=== PATIENT | male | born 1940 | race Caucasian/White ===

== ENCOUNTER 2017-02-06 11:23 | Inpatient (IN) | payer MEDICARE ==
[~2017-02-06] VITALS: Ht 137.2 cm; Wt 86.5 kg
--- NOTE | ~2017-02-06 | ECH ---
Transthoracic Echocardiography Report (TTE) Demographics Patient Name GISELA MORA Date of Study 02/07/2017 Patient Number [id number] Visit Number [id number] Date of 1940 Room Number 428 Accession Number [id number] Gender Male Age 76 year(s) Referring Monica Baraohna [employer] Pamela August [facility] Physician MD Jak Nelson MD Physician Interpreting Monica Barahona Pathology Laboratory Technologist Physician MD Supervising Ordering Physician Monica Barahona MD/ASHA VALERA Nurse Stress Snuff Box Finisher Conclusions Summary Technically difficult exam. The estimated left ventricular ejection fraction is 30%. Mild concentric left ventricular hypertrophy. The left atrium is severely dilated by LA volume index measurement. Mild mitral regurgitation by color Doppler. There is mild aortic regurgitation by color Doppler. The aortic root appears moderately dilated. The maximum diameter measures 4.3 cm at the sinus of valsalva. Procedure Type of Study TTE procedure:Echo Complete SF. Procedure Date Date: 02/07/2017 Start: 10:50 AM Technical Quality: Fair due to patient immobility. Indications:Elevated Troponin, Congestive heart failure, Ischemic Cardiomyopathy and Coronary artery disease. Additional Indications:elevated BNP Appropriate Use Criteria: 9 Height: 54 inches Weight: 193 pounds BSA: 1.7 m Rhythm: Within normal limits HR: 84 bpm BP: 153/85 mmHg M-Mode/2D Measurements LV Diastolic Dimension: 5.1 cm LV Systolic Dimension: 5.15 cm LV Septum Diastolic: 1.29 cm LV PW Diastolic: 1.25 cm AO Root Dimension: 3.02 cm LA Dimension: 4.07 cm RV Diastolic Dimension: 3.44 cm LA volume: 91.93 ml LA volume index: 54 ml/m LVOT: 2.51 cm Doppler Measurements AV Mean Gradient: 0.46 mmHg MV Peak E-Wave: 0.66 m/s RA Area: 16.28 cm Findings Left Ventricle The left ventricle is normal in size . Mild concentric left ventricular hypertrophy. Diastolic function indeterminate due to patient's arrhythmia. Right Ventricle Normal right ventricle structure and function. Left Atrium The left atrium is severely dilated by LA volume index measurement. Right Atrium Normal right atrial size. Mitral Valve Normal mitral valve structure and function. Mild mitral regurgitation by color Doppler. Aortic Valve Normal aortic valve structure and function. There is mild aortic regurgitation by color Doppler. Tricuspid Valve Normal tricuspid valve structure and function. Pulmonic Valve The pulmonic valve is not well visualized. Pericardial Effusion No evidence of pericardial effusion. Miscellaneous The aortic root appears moderately dilated. The maximum diameter measures 4.3 cm at the sinus of valsalva. Pleural Effusion No evidence of pleural effusion. Contractility Score LV regional wall motion:(0-Non visualized 1-Normal 2-Hypokinesis 3-Akinesis 4-Dyskinesis 5-Aneurysm) Signature
--- NOTE | ~2017-02-06 | WND ---
ADMIT: 02/06/2017 RM/LOC: 403 [facility] MR#: [id number] 2620 [facility] [address] [place] [id number] GISELA MORA [address] [place] [id number] [facility] SEX: M AGE: 76 : 1940 DATE OF VISIT: 02/12/2017 TIME IN: 1110 hours. TIME OUT: 1115 hours. REASON FOR VISIT: Re-evaluation of skin concerns. This is a request for Dr. Doherty. HISTORY OF PRESENT ILLNESS: This is a 76-year-old male with chronic systolic heart failure, peripheral vascular disease, type 2 diabetes. Prior to admission, he quit taking his Lasix. He became short of breath, and so he was evaluated in the emergency room and diagnosed with acute on chronic systolic heart failure and referred for admission. He had a previous bilateral above- the-knee amputation secondary to peripheral vascular disease. He was examined and admitted for hypoxic respiratory failure. Acute on chronic systolic heart failure. Chronic stage 4 kidney disease. Elevated troponin. Type 2 diabetes mellitus. Coronary artery disease. Depression. History of COPD. Wound Care was consulted about skin concerns. He was evaluated by Betzy Madison APRN, NP, on 02/06/2017 and diagnosed with moisture-associated skin breakdown around his perirectal area. Orders were written for low air loss mattress, chair air cushion, and Aloe [place] Sensi-Care to be applied 4 times a day. Wound Care presents today for reevaluation of skin concerns. PAST MEDICAL HISTORY: As indicated in review of systems. Also includes gastroesophageal reflux disease. Depression. History of alcohol abuse. Glaucoma. Hyperlipidemia. Poorly controlled diabetes. JEAN CLAUDE. ALLERGIES: Penicillin, mercurial, morphine, and hydralazine. CURRENT MEDICATIONS: Per the MAR. Please see the MAR for further details. 1. Children's aspirin. 2. Coreg. 3. Flomax. 4. Lasix. 5. Lipitor. 6. Plavix. 7. Seroquel. 8. Zoloft. 9. DuoNeb. 10.Levemir. 11.NovoLog. 12.Nitroglycerin drip. PRN medications: 1. Maalox. 2. Surfak. 3. Tylenol. 4. Xanax. 5. Glucagon. ADMIT: 02/06/2017 RM/LOC: 403 [facility] MR#: [id number] [address] [address] GISELA MORA [address] [place] [address] Wound Care Clinic SEX: M AGE: 76 : 1940 6. Tylenol suppository. 7. Nitrostat. 8. D50. 9. Lopressor. FAMILY HISTORY: Obtained from previous record shows mother with peripheral vascular disease, hypertension, and diabetes. Father with heart disease and hypertension. SOCIAL HISTORY: He is . He is a former smoker. He has a history of alcohol abuse. He does not use drugs. He is retired and lives in [place] with his . REVIEW OF SYSTEMS: He is examined in his hospital room where he is awake, alert, and oriented x3. He denies any recent fever or chills. No nausea or vomiting. His appetite is good. He denies any cough, cold, or chest pain. He denies any abdominal discomfort. He does state that his bottom hurts up to a "9." PHYSICAL EXAMINATION: VITAL SIGNS: 96.1, 63, 16, blood pressure 133/62, O2 sats on nasal cannula is 90%. Focused exam, body wide skin exam was done. He has numerous bruising noted on his upper extremities related to his Coumadin use. On the right dorsal surface is a circular ulceration that measures 0.9 cm x 1.2 cm, has a dried dark red wound base. No drainage noted. To the dorsal surface of left hand, he has a C-shaped skin tear that measures 1.3 cm x 0.3 cm with a red moist wound base, a small amount of sanguinous drainage noted. To his sacral, coccyx, buttocks area in his gluteal crease, he has a slit that measures 1.6 x 0.3 cm with a red moist wound base. In his perirectal area is redness that measures 6 cm x 7 cm with the edges peeling. ADMIT: 02/06/2017 RM/LOC: 403 [facility] MR#: [id number] [address] [address] COLLINSGISELA FLORES [address] [place] [address] Wound Care Clinic SEX: M AGE: 76 : 1940 ASSESSMENT: 1. Category II skin tear, left hand. 2. Category III skin tear, right hand. 3. Moisture-associated skin breakdown, perirectal and gluteal crease. TREATMENT PLAN: Requested that the low air loss mattress overlay be placed on his bed. Chair air cushion when he is up. Position changes every 2 hours. Position off his bottom. Mepilex Border to the left hand skin tear to be changed twice a week and p.r.n. Thank you for this referral and Wound will follow while he is inpatient. Debbie Yuen APRN/ lucinda JOB #: [id number] CC: Santiago Benedict, Attending Physician Santiago Benedict, Family Physician
[~2017-02-06 11:23] MED LIST: AMBIEN5 MG PO; COZAAR25 MG PO; DAILY VITAMIN1 EACH PO; DUONEB DPS3 ML IH; HUMALOG, N100 UNITS/ SQ; LASIX40 M1 PO; NITROSTAT0.4 MG SL; PRAVACHOL20 M1 PO; TYLENOL DP650 MG/20. PO; VANTIN DPS200 MG PO; ZITHROMAX250 MG PO
--- NOTE | 2017-02-08 12:33 | ER ---
ADMIT: 02/06/2017 RM/LOC: 428 [facility] MR#: [id number] [id number] [facility] [address] [place], [place] [address] GISELA MORA [address] [place] [address] Emergency Room Report SEX: M AGE: 76 : 1940 DATE: 02/06/2017 ADDENDUM: This is a 76-year-old white male coming in with shortness of breath. He also had a little chest pain. He is a bilateral amputee, so when he takes his Lasix, he has to get up and pee, he has been having a hard time with that. Also notes that he had some chest pain at this time as well. We gave him 40 of Lasix here and he actually was doing pretty good. His CBC and chemistry are okay with the exception that his troponin did take a bump at 1.6 and BNP is always up 15,000+. Creatinine was 1.7. Chest x-ray shows big heart. EKG nothing acute otherwise. I spoke with Dr. Doherty, he is going to need to admit him. We also put an inch of paste on him bringing his pressure down to see if that will help his failure. CONDITION ON DISCHARGE: Serious but stable at this time. Bolivar Almanzar MD/ elenal JOB #: [id number] CC: Santiago Benedict MD, Attending Physician Santiago Benedict MD, Family Physician
--- NOTE | 2017-02-08 16:13 | HP ---
ADMIT: 02/06/2017 RM/LOC: 428 [facility] MR#: [id number] [facility] [address] [place], [place] [address] GISELA MORA [address] [place] [address] History and Physical SEX: M AGE: 76 : 1940 DATE OF SERVICE: CHIEF COMPLAINT: Dyspnea. HISTORY OF PRESENT ILLNESS: This is a 76-year-old male with chronic systolic heart failure, peripheral vascular disease, type 2 diabetes. He quit taking his Lasix several days ago as he has a bilateral bnjty-umy-ccdm amputation secondary to peripheral vascular disease and it is too hard to get around. Does have some breakdown on his bottom. Became acutely short of breath, so they brought him into the ER. Evaluated by Dr. Almanzar in the ER, is diagnosed with acute on chronic systolic heart failure and referred to admission. I evaluated him at his bedside in room #428. He is very personable, still feels a bit short of breath. No wesley chest pain or anything like that. He states exactly what happened, he stopped taking his medications approximately 3 days ago and he became acutely short of breath. He does this because he is a bilateral amputee and he cannot get around to go to the bathroom. He also has a breakdown on his buttock. PAST MEDICAL HISTORY: 1. Coronary artery disease, history of two-vessel CABG. 2. Poorly-controlled diabetes. 3. Hypertension. 4. JEAN CLAUDE. 5. GERD. 6. Chronic systolic heart failure. 7. Depression. 8. History of alcohol abuse. 9. Glaucoma. 10.Peripheral vascular disease. 11.Bilateral oeqem-hdv-xqqi amputations. 12.COPD. 13.Hyperlipidemia. MEDICATIONS: 1. Lantus. 2. Coreg. 3. Aspirin. 4. Plavix. 5. Famotidine. 6. Folic acid. 7. Nitroglycerin. 8. Pravastatin. 9. Seroquel. 10.Sertraline. 11.Thiamine. 12.Tylenol. 13.Valsartan. ADMIT: 02/06/2017 RM/LOC: 428 [facility] MR#: [id number] [address] [address] [place] GISELA Nelson [address] [place] [address] History and Physical SEX: M AGE: 76 : 1940 14.Zolpidem. ALLERGIES: PENICILLIN, MERCURIAL, MORPHINE, AND HYDRALAZINE. FAMILY HISTORY: Mother with peripheral vascular disease, hypertension, and diabetes. Father with heart disease and hypertension. SOCIAL HISTORY: He is . He is a former smoker. He has history of alcohol abuse. He does not do drugs. REVIEW OF SYSTEMS: Complete review of systems reviewed, per HPI. PHYSICAL EXAMINATION: VITAL SIGNS: Blood pressure is 178/105, pulse 90, respiratory rate is 20. He is on supplemental O2. Temp is 94.2. GENERAL: He is alert and oriented x3. No acute distress. HEENT: Normocephalic, atraumatic. Extraocular movements intact. Pupils equal and responsive to light. No nasal discharge. NECK: Supple. HEART: Regular. LUNGS: Diffuse wheezing, distant bilaterally. ABDOMEN: Soft, nontender. EXTREMITIES: He has bilateral lower extremity lfhyl-ijp-xflk amputations. IMAGING STUDIES: EKG with some concern for old infarct. No acute STs that I can see in a study here. ASSESSMENT AND PLAN: 1. Hypoxic respiratory failure. 2. Acute on chronic systolic heart failure. 3. Stage 4 chronic kidney disease. 4. Elevated troponin. 5. Type 2 diabetes mellitus. 6. Coronary artery disease. 7. Depression. 8. History of chronic obstructive pulmonary disease. ADMIT: 02/06/2017 RM/LOC: [address] [place] [address] MR#: [id number] [id number] [facility] [address] [place], [place] [address] GISELA MORA [address] [place] [address] History and Physical SEX: M AGE: 76 : 1940 Admit him to my service. He was given 80 mg of IV Lasix in the ER. I will place him on some bronchodilator therapy, maintain him on his home psychotropic regimen. I will maintain him n.p.o. status, half dose his basal insulin, place him on a q.4 hours regular dose supplemental scale. I gave him 325 of aspirin, maintain him on a statin and Plavix. Due to the elevated troponin, we will request a transthoracic echo and we will request the [facility] see the patient. The patient is a full code. Discussed the plan with the patient, he expressed understanding, was in agreement, and had no further questions. Bolivar Schuler MD/ lucinda JOB #: [id number] CC: Santiago Benedict, Attending Physician Santiago Benedict, Family Physician
--- NOTE | 2017-02-15 09:12 | DS ---
ADMIT: 02/06/2017 RM/LOC: 403 [facility] MR#: [id number] [id number] [facility] [address] [place], [place] [address] GISELA MORA [address] [place] [address] Discharge Summary SEX: M AGE: 76 : 1940 ADMISSION DATE: 02/06/2017 DISCHARGE DATE: 02/14/2017 DISCHARGE DIAGNOSES: 1. Acute coronary syndrome/non ST-segment elevation OK (myocardial infarction). 2. Coronary artery disease, status post prior coronary bypass grafting. 3. Ischemic cardiomyopathy. 4. Acute on chronic heart failure with reduced ejection fraction. 5. Acute kidney injury, resolved. 6. Chronic kidney disease. 7. Hypoxic respiratory failure. 8. Apnea with likely undiagnosed obstructive sleep apnea. 9. Diabetes mellitus, type 2, poorly controlled, insulin requiring. 10.Peripheral vascular, status post prior bilateral qpdqr-wqo-tgts amputation. 11.Hypertension. 12.Hyperlipidemia. 13.Anxiety. 14.BPH (benign prostate hypertrophy). 15.Hypotension due to hypovolemia, resolved. 16.History of alcohol abuse and alcohol withdrawal. 17.Hypomagnesemia, resolved. CONSULTATIONS: Cardiology. PROCEDURES: None. REASON FOR ADMISSION: This is a 76-year-old gentleman with multiple medical problems, poorly controlled diabetes, heart disease, and systolic heart failure, presented to [facility] Emergency Room on the day of admission with complaints of dyspnea. He was found to be hypoxic and volume overloaded with an elevated troponin and he was admitted for evaluation and treatment. For complete details, please see the history and physical and consult notes as dictated in [facility]. HOSPITAL COURSE: At the time of admission, the patient was placed in PCU status. He was monitored on telemetry and oximetry, and given supplemental oxygen. He was placed on sliding scale insulin. His troponins were trended out. Initially, this was thought to be just heart failure, but then really more than anything was thought to later become an actual ischemic event. He was given aspirin and Lopressor. He underwent an echocardiogram and as mentioned, the cardiac enzymes were trended out. Cardiology was consulted. He was started on a nitroglycerin drip and diuresed. He was also started on a heparin drip for his acute coronary syndrome and given aspirin as well. The patient was aggressively diuresed throughout his hospital stay and actually became a little hypotensive, transiently requiring dopamine and thought to be secondary to hypovolemic issue. Throughout his hospital stay, he was monitored on alcohol withdrawal protocol and given some Ativan due to his long- ADMIT: 02/06/2017 RM/LOC: 403 [facility] MR#: [id number] [address] [place] [id number] [facility] [address] [place] [address] Discharge Summary SEX: M AGE: 76 : 1940 term use of alcohol. His echo returned with an EF of 30% with mild LVH. The patient slowly improved. He was seen by PT and OT. His creatinine bumped during his hospital stay, but that continued to improve with decrease in his diuretics. He was also transiently hypomagnesemic and that was replaced. As mentioned, his blood pressures improved after getting him off of the high dose diuretics. He continued to improve. Initially when he was hypotensive, he was covered with empiric antibiotics and stress dose steroids, and those were tapered as well. After a long discussion with Social Work, he was evaluated by a care home facility. He was taken off his heparin, continued with aspirin, Plavix, and carvedilol as his blood pressures resume. Due to his recent kidney injury, we held his angiotensin receptor tiffanie. He did have a little bit of wide complex tachycardia that was thought to be likely an aberrant finding. He continued to improve. As mentioned, his creatinine had improved. His PT and OT as well as myself all recommended care home at least for rehab prior to returning home as he just was thought to be home safety risk. The patient agreed and was accepted at a local recent rehab facility on 02/14. The patient did require oxygen through his hospitalization likely due to mild pulmonary edema from his heart failure as well as undiagnosed sleep apnea, and he will be discharged on oxygen at 2-3 L just to keep his sats greater than 90. His discharge diet is a 2 g sodium cardiac ADA diet as tolerated. His activity will be per Physical Therapy and Occupational Therapy. His home medications are found on his home medication list and we will have followup with him in the next week to ten days at [facility]. His code status is DNR/DNI at the time of discharge. Santiago Benedict MD/ wyatt JOB #: [id number] CC: Santiago Benedict MD, Attending Physician Santiago Benedict MD, Family Physician
[2017-02-15] MEDS ORDERED: ECOTRIN-DPS325 MG PO (19:30)
[2017-02-15] MEDS ORDERED: COREG6.25 MG PO (19:30)
[2017-02-15] MEDS ORDERED: LASIX DPS20 MG PO (19:31)
[2017-02-15] MEDS ORDERED: FLOMAX DPS0.4 MG PO (19:31)
[2017-02-15] MEDS ORDERED: ZOLOFT50 MG PO (19:32)
[2017-02-15] MEDS ORDERED: PLAVIX75 MG PO (19:32)
[2017-02-15] MEDS ORDERED: LIPITOR40 MG PO (19:32)
[2017-02-15] MEDS ORDERED: LEVEMIR100 UNIT/1 SQ (19:33)
[2017-02-15] MEDS ORDERED: SEROQUEL50 MG PO (19:33)
[2017-02-15] MEDS ORDERED: TYLENOL DPS325 MG PO (19:34)
[2017-02-15] MEDS ORDERED: XANAX DPS0.25 MG PO (19:34)
[2017-02-15] MEDS ORDERED: SURFAK240 MG PO (19:34)
[2017-02-15] MEDS ORDERED: NITROSTAT0.4 MG SL (19:35)
[2017-02-15] MEDS ORDERED: PEPCID20 MG PO (19:36)
[2017-02-15] MEDS ORDERED: VITAMIN B-1100 MG PO (19:36)
[2017-02-15] MEDS ORDERED: FOLVITE-DPS1 MG PO (19:36)
--- NOTE | 2017-02-22 17:29 | CO ---
ADMIT: 02/06/2017 RM/LOC: 428 [facility] MR#: [id number] 2620 [facility] [address] [place] [phone] GISELA MORA [address] [place] [address] Consultation SEX: M AGE: 76 : 1940 DATE OF CONSULTATION: 02/06/2017 ATTENDING PHYSICIAN: Santiago Benedict CONSULTING PHYSICIAN: Shaggy Anderson MD REASON FOR CONSULT: Elevated troponin. Elizbaeth Zepeda RN, scribing for Dr. Shaggy Anderson. HISTORY OF PRESENT ILLNESS: Walter is a very pleasant, 76-year-old gentleman I have been asked to see in Cardiology consultation by Dr. Schuler for elevated troponin. I saw him in the hospital in 2015 for decreased ejection fraction and non-ST elevated VT. His EF at that time was 25-30%. He did not want any cardiac catheterization or further evaluation at that time. He discharged home on medical management. He no-showed to followups and I have not seen him since. 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 He also has history of coronary artery disease, status post bypass by Dr. Shields at [facility] over 10 years ago. I do not have those records. Last echo was in 2014. EF at that time was 25-30%. He has history of high blood pressure, hyperlipidemia, and he is a diabetic. Walter presented to [facility] today with complaints of a "cramping" sensation in his chest. He had radiation of this to his jaw and he was short of breath. He stated this began about 4-5 days ago and progressively has been getting worse. He continued to have worsening discomfort and so decided to come to the emergency room. He had lab work performed which did demonstrate elevated troponin of 1.6. EKG did not show any change from [address]-T changes. He had proBNP of 15,000. His creatinine was elevated at 1.7 with a BUN of 27. Currently, he is pain-free and denies any shortness of breath and is resting comfortably in bed. His blood pressure was extremely elevated on arrival, and when he got to the floor, his blood pressure was 183/150. He is currently getting IV Lopressor which has brought it down mildly to 179/103. Heart rate is in the 80s to 90s. PAST MEDICAL HISTORY: 1. Coronary artery disease. 2. Peripheral vascular disease, status post bilateral above-knee amputation. 3. Hypertension. 4. Hyperlipidemia. 5. Diabetes. 6. Ischemic cardiomyopathy. 7. Chronic kidney disease. 8. Depression. ALLERGIES: PENICILLIN, MORPHINE, HYDRALAZINE. MEDICATIONS: Continued home medications include: ADMIT: 02/06/2017 RM/LOC: 428 [facility] MR#: [id number] [address] [place] [phone] GISELA MORA [address] [place] [address] Consultation SEX: M AGE: 76 : 1940 1. Lantus 7 units at bedtime. 2. Carvedilol 6.25 p.o. b.i.d. 3. Aspirin 81 daily. 4. Plavix 75 p.o. daily. 5. Famotidine 20 p.o. twice daily. 6. Folic acid 1 mg p.o. daily. 7. Nitroglycerin sublingual p.r.n. 8. Pravastatin 20 p.o. at bedtime. 9. Quetiapine 50 mg p.o. daily. 10.Sertraline 50 mg p.o. daily. 11.Thiamin 100 mg p.o. daily. 12.Tylenol extra-strength 1000 mg every 4 hours p.r.n. p.o. 13.Valsartan 80 mg p.o. daily. 14.Zolpidem 10 mg at bedtime. 15.He did receive 40 mg IV Lasix in the ER. FAMILY HISTORY: Positive family history of heart disease. SOCIAL HISTORY: Will lives at home with his who helps him with his cares. He is retired. He denies any caffeine, question alcohol use. Denies tobacco use. REVIEW OF SYSTEMS: GENERAL: Denies fatigue, fever, chills, sweats, rash, or weight loss. EYES: Denies double vision, blurred vision, cataracts, or glaucoma. ENT: Denies hearing loss or problems with nose, mouth or throat. PULMONARY: Increased shortness of breath. Denies any hemoptysis or obstructive sleep apnea. GASTROINTESTINAL: He has history of acid reflux and heartburn. Denies any trouble swallowing, GI bleeding, gallbladder issues, or liver disease. GENITOURINARY: History of chronic kidney disease. Denies dysuria, hematuria, nocturia, urinary tract infection, or kidney stones. Denies history of renal insufficiency or failure. MUSCULOSKELETAL: He is a bilateral amputee. Denies any arthritis or gout. ENDOCRINE: Denies history of thyroid dysfunction or diabetes. HEMATOLOGIC: Denies history of anemia, easy bruising, or cancer. NEUROLOGIC: Denies chronic headaches, dizziness, syncope, stroke, seizures or numbness or tingling. PSYCHIATRIC: History of anxiety. Denies history of mental illness or feelings of depression. PHYSICAL EXAMINATION: VITAL SIGNS: Blood pressure 179/103, heart rate 89, respirations 18, temperature 97.5, oxygenation 98% on 2 L. GENERAL: Alert, mildly dyspneic. SKIN: [place], warm and dry. EYES: Sclerae clear. No xanthelasmas. ENT: Oral mucosa is pink and moist. No jugular venous distention or carotid bruits. ADMIT: 02/06/2017 RM/LOC: 428 [facility] MR#: [id number] [address] [place] [phone] GISELA MORA [address] [place] [address] Consultation SEX: M AGE: 76 : 1940 CHEST: Lungs; mildly diminished in bases. HEART: Regular rate and rhythm with possible gallop. ABDOMEN: Protuberant, nontender. MUSCULOSKELETAL: Gait is normal. EXTREMITIES: Bilateral amputee. PSYCHIATRIC: Alert and oriented. Mood and affect are appropriate. DIAGNOSTIC DATA: Chest x-ray on 02/06/2017 showed bilateral small pleural effusions. Sodium 142, potassium 4.3, BUN 27, creatinine 1.7, glucose 188. AST 38, ALT 23, troponin 1.6, proBNP 15,341. White blood cell count 4.9, hemoglobin 15.8, hematocrit 48.5, platelets 125. ASSESSMENT AND PLAN: 1. Acute [place] Heart Association class IV systolic heart failure. 2. Possible acute coronary syndrome, non-ST elevated myocardial infarction. 3. Ischemic cardiomyopathy. 4. Diabetes. 5. Chronic kidney disease. 6. Hypertension. North is a pleasant 76-year-old male with known coronary history per previous bypass. He has nonischemic cardiomyopathy with ejection fraction around 25%. He was admitted with 4-5 days of shortness of breath, chest fullness into throat. Creatinine is 1.7, troponin is 1.6. He has elevated BNP. I think this is more CHF than an acute ischemic event, but we will trend cardiac enzymes to make sure there are no changes. His precipitating factor probably his hypertension and noncompliance with medications. He stated that he was not taking Lasix at home on a regular basis. I will start IV nitroglycerin and remove nitroglycerin paste to run 10 mcg and titrate to a ADMIT: 02/06/2017 RM/LOC: 428 [facility] MR#: [id number] [address] [place] [address] [place] [phone] GISELA MORA [address] [place] [address] Consultation SEX: M AGE: 76 : 1940 max of 50 for a goal systolic blood pressure of less than 160 mmHg. I recommend optimizing medications and we will continue diuretics with Lasix 40 mg IV b.i.d., second dose tonight. I will have echocardiogram checked in morning to make sure he has no change in his wall motion and ejection fraction as well as to evaluate his valvular structure. He confirms conservative approach and no invasive procedures per his request at this time. Thank you for the consultation. I have read and agree with the documentation that has been completed regarding this visit. By signing this record, I attest that the documentation was completed in my physical presence and is an accurate record of the encounter. Elizabeth Zepeda RN / Shaggy Anderson MD / lucinda JOB #: [id number] CC: Santiago Benedict, Attending Physician Santiago Benedict, Family Physician
[2017-05-09] MEDS ORDERED: LIPITOR80 MG PO (17:10)
[2017-05-09] MEDS ORDERED: ASA CHILDREN'S81 MG PO (17:10)
[2017-05-09] MEDS ORDERED: COREG DPS12.5 MG PO (17:11)
[2017-05-09] MEDS ORDERED: PLAVIX75 MG PO (17:11)
[2017-05-09] MEDS ORDERED: SEROQUEL50 MG PO (17:16)
[2017-05-09] MEDS ORDERED: FLOMAX DPS0.4 MG PO (17:16)
[2017-05-09] MEDS ORDERED: FOLVITE-DPS1 MG PO (17:16)
[2017-05-09] MEDS ORDERED: PEPCID DPS20 MG PO (17:16)
[2017-05-09] MEDS ORDERED: LASIX DPS40 MG PO (17:16)
[2017-05-09] MEDS ORDERED: LEVEMIR100 UNIT/1 SQ (17:17)
[2017-05-09] MEDS ORDERED: VITAMIN B1100 MG PO (17:17)
[2017-05-09] MEDS ORDERED: SPIRIVA18 MCG IH (17:17)
[2017-05-09] MEDS ORDERED: IMDUR DPS60 MG PO (17:17)
[2017-05-09] MEDS ORDERED: DULERA 200/58.8 GM IH (17:17)
[2017-05-09] MEDS ORDERED: ZOLOFT DPS50 MG PO (17:18)
[2017-05-09] MEDS ORDERED: NOVOLOG100 UNIT/2 SQ (17:18)
== END 2017-02-14 14:40 | DRG 280 ==
LOC: ER 11:23 → 4PCU 14:00 → 3ICU 02-08 12:59 → 4PCU 02-10 20:40
PROVIDERS: ADMIT Internal Medicine
PROC: 02HV33Z Insertion of Infusion Device into Superior Vena Cava, Percutaneous Approach (ICD-10-PCS; principal; 2017-02-08)
PROC: 4A133B1 Monitoring of Arterial Pressure, Peripheral, Percutaneous Approach (ICD-10-PCS; principal; 2017-02-08)
DX: I21.4 Non-ST elevation (NSTEMI) myocardial infarction (principal); I50.23 Acute on chronic systolic (congestive) heart failure; R57.1 Hypovolemic shock; J96.01 Acute respiratory failure with hypoxia; N17.9 Acute kidney failure, unspecified; N18.4 Chronic kidney disease, stage 4 (severe); I13.0 Hypertensive heart and chronic kidney disease with heart failure and stage 1 through stage 4 chronic kidney disease, or unspecified chronic kidney disease; G47.33 Obstructive sleep apnea (adult) (pediatric); E83.42 Hypomagnesemia; F10.20 Alcohol dependence, uncomplicated; E11.51 Type 2 diabetes mellitus with diabetic peripheral angiopathy without gangrene; I25.10 Atherosclerotic heart disease of native coronary artery without angina pectoris; E11.65 Type 2 diabetes mellitus with hyperglycemia; K21.9 Gastro-esophageal reflux disease without esophagitis; E11.22 Type 2 diabetes mellitus with diabetic chronic kidney disease; F32.9 Major depressive disorder, single episode, unspecified; F41.9 Anxiety disorder, unspecified; N40.0 Benign prostatic hyperplasia without lower urinary tract symptoms; I25.5 Ischemic cardiomyopathy; H40.9 Unspecified glaucoma; J44.9 Chronic obstructive pulmonary disease, unspecified; T50.1X6A Underdosing of loop [high-ceiling] diuretics, initial encounter; Z91.128 Patient's intentional underdosing of medication regimen for other reason; E78.5 Hyperlipidemia, unspecified; Z95.1 Presence of aortocoronary bypass graft; Z89.612 Acquired absence of left leg above knee; Z89.611 Acquired absence of right leg above knee; Z79.82 Long term (current) use of aspirin; Z79.4 Long term (current) use of insulin; Z87.891 Personal history of nicotine dependence; Z66 Do not resuscitate

== ENCOUNTER 2017-03-30 06:31 | Inpatient (IN) | payer MEDICARE ==
[~2017-03-30] VITALS: Ht 137.2 cm; Wt 83.1 kg
--- NOTE | ~2017-03-30 | ECH ---
Transthoracic Echocardiography Report (TTE) Demographics Patient Name GISELA MORA Date of Study 04/01/2017 Patient Number [id number] Visit Number [id number] Date of 1940 Room Number 405 Accession Number [id number] Gender Male Age 77 year(s) Referring Tanya Avalos Sock Turner Bridget Villalobos [facility] Physician Physician Interpreting Monica Barahona Firer Watertender Physician MD Supervising Ordering Physician Tanya Avalos MD, MD/P Nurse Stress Molding Engineer Conclusions Summary Limited study for ejection fraction and wall motion. Doppler not performed. Technically fair exam. The estimated left ventricular ejection fraction is 25%. The left ventricle is mildly dilated . Normal right ventricle structure with reduced function. The left atrium is moderately dilated by LA volume index measurement. The right atrium is mildly dilated. The ascending aorta appears mildly dilated. The maximum diameter measures 3.6 cm. Procedure Type of Study TTE procedure:Echo Limited SF. Procedure Date Date: 04/01/2017 Start: 08:28 AM Technical Quality: Fair due to patient immobility. Indications:Elevated Troponin, Chest pain, Congestive heart failure, Coronary artery disease and Ischemic Cardiomyopathy. Additional Indications:ETOH Appropriate Use Criteria: 9 Height: 54 inches Weight: 188 pounds BSA: 1.68 m Rhythm: Within normal limits HR: 85 bpm BP: 141/67 mmHg M-Mode/2D Measurements LV Diastolic Dimension: 5.9 cm LV Systolic Dimension: 5.71 cm LV Septum Diastolic: 1.01 cm LV PW Diastolic: 1.01 cm AO Root Dimension: 3.57 cm LA Dimension: 3.42 cm RV Diastolic Dimension: 3.77 cm LA volume: 81.3 ml LA volume index: 48 ml/m RV Base: 4 cm RV Mid: 2.2 cm TAPSE: 0.7 cm Doppler Measurements RA Area: 19.88 cm Findings Left Ventricle The left ventricle is mildly dilated . Right Ventricle Normal right ventricle structure with reduced function. Left Atrium The left atrium is moderately dilated by LA volume index measurement. Right Atrium The right atrium is mildly dilated. Mitral Valve Mild mitral annular calcification. Aortic Valve The aortic valve is mildly sclerotic. Tricuspid Valve Normal tricuspid valve structure and function. Pulmonic Valve The pulmonic valve is not well visualized. Pericardial Effusion No evidence of pericardial effusion. Miscellaneous The ascending aorta appears mildly dilated. The maximum diameter measures 3.6 cm. Pleural Effusion No evidence of pleural effusion. Contractility Score LV regional wall motion:(0-Non visualized 1-Normal 2-Hypokinesis 3-Akinesis 4-Dyskinesis 5-Aneurysm) Signature
[~2017-03-30 06:31] MED LIST changes: +COREG6.25 MG PO; +ECOTRIN-DPS325 MG PO; +FLOMAX DPS0.4 MG PO; +FOLVITE-DPS1 MG PO; +LASIX DPS20 MG PO; +LEVEMIR100 UNIT/1 SQ; +LIPITOR40 MG PO; +PEPCID20 MG PO; +PLAVIX75 MG PO; +SEROQUEL50 MG PO; +SURFAK240 MG PO; +TYLENOL DPS325 MG PO; +VITAMIN B-1100 MG PO; +XANAX DPS0.25 MG PO; +ZOLOFT50 MG PO
--- NOTE | 2017-03-30 18:28 | ER ---
ADMIT: 03/30/2017 RM/LOC: 405 [facility] MR#: [id number] 2620 [facility] [address] [place], [place] [phone] GISELA MORA [address] [place] [address] Emergency Room Report SEX: M AGE: 77 : 1940 DATE: 03/30/2017 TIME: 0631 hours. Please refer to my T-sheet for complete H and P. HISTORY OF PRESENT ILLNESS: Briefly, the patient is a 77-year-old, who comes in with chest pain about 1 to 2 hours ago. It is still present, moderate to severe. It was mild to moderate when he got here. Did not radiate. He does feel short of breath. He has a known history of coronary artery disease, diabetes, hypertension, high cholesterol, peripheral vascular disease, and cardiomyopathy. He was just in the hospital for a non-STEMI. He says this feels very similar. PHYSICAL EXAMINATION: VITAL SIGNS: Blood pressure 157/84, pulse 101, respirations 14, temp 99, saturating at 88%. GENERAL: No acute distress. HEENT: Grossly normal. LUNGS: Clear. HEART: Regular. ABDOMEN: Soft. SKIN: No rash. NEURO: He is alert, oriented, and nonfocal. EMERGENCY DEPARTMENT COURSE: EKG was sinus rhythm. He had a left bundle branch block. Chest x-ray revealed no acute disease. CBC was normal except white count 4.8, hemoglobin 13.8, platelets 129. Chemistries normal except BUN 39, glucose 312, creatinine 1.4. His troponin was 0.254. His BNP was 3252. He was given nitro x2 and aspirin and his pain was resolved. I had a discussion with Tanya and will admit to the hospital. ASSESSMENT: 1. Chest pain. 2. Elevated troponin. I looked up his prior troponins they were all elevated when he was here for is non-segment elevation myocardial infarction, even left with one slightly up. 3. Congestive heart failure. 4. Severe vascular disease. PLAN: Admit to the hospital. Jose Baker MD/ lucinda JOB #: [id number] CC: Santiago Benedict MD, Attending Physician Santiago Benedict MD, Family Physician
--- NOTE | 2017-03-31 13:57 | HP ---
ADMIT: 03/30/2017 RM/LOC: 405 [facility] MR#: [id number] 2620 [facility] [address] [place] [phone] GISELA MORA [address] [place] [address] History and Physical SEX: M AGE: 77 : 1940 DATE OF SERVICE: CHIEF COMPLAINT: Chest pain. HISTORY OF PRESENT ILLNESS: This is a 77-year-old gentleman. He has a past medical history of coronary artery disease, peripheral vascular disease, and COPD. He came in with chest pain, it happened about 1-2 hours prior to arrival, he took a couple nitroglycerin, it mostly went away but then came back, he described it as moderate to severe. When he got here, it came back and was still moderate, so he got a couple more nitroglycerin and baby aspirin, he did feel a little bit better. He was recently here for elevated troponin, non STEMI, and this current sensation feels very similar. He was not usually on oxygen he reports, but oxygen was mildly low here. Initial troponin was positive at 0.25. Currently, the patient is chest pain-free. Denies shortness of breath. Feels okay but earlier, he was feeling pretty bad. Past history reviewed from his last H and P on February [address] Schuler. PAST MEDICAL HISTORY: Reviewed and unchanged. ALLERGIES: REVIEWED AND UNCHANGED. FAMILY HISTORY: Reviewed and unchanged. SOCIAL HISTORY: Reviewed and unchanged. REVIEW OF SYSTEMS: Other complete review of systems obtained and negative except as above. PHYSICAL EXAMINATION: VITAL SIGNS: Temperature 97.5, pulse 75, respirations 20, blood pressure 148/74, oxygen saturation 91% on 2 L oxygen by nasal cannula. GENERAL: This is a well-appearing, 77-year-old gentleman. He is in no apparent distress. He is alert. He is oriented. Pleasant. HEENT: Pupils are equal, round, and reactive to light and accommodation. His extraocular muscles are intact. His throat is clear. Head is atraumatic and normocephalic. NECK: Supple. Trachea midline. Thyroid not palpable. HEART: Irregularly irregular with 3/6 systolic murmur. LUNGS: Diminished, but clear bilaterally. ABDOMEN: Protuberant, soft, without any tenderness. EXTREMITIES: Lower extremities, he has bilateral amputations at about the knees. Upper extremities, unremarkable. NEURO: Normal. Cranial nerves are intact. LABORATORY AND X-RAY DATA: CBC with a white count of 4.8, hemoglobin 13.8, platelets of 129. CMP with a sodium 138, potassium 4.5, BUN 39, creatinine 1.4, magnesium 1.7. Troponin 0.254. NT-proBNP is 3252. CK is normal at 235. Chest x-ray shows no significant change from one about a month ago. ADMIT: 03/30/2017 RM/LOC: 405 [facility] MR#: [id number] [address] [place] [phone] [facility] [address] [place] [address] History and Physical SEX: M AGE: 77 : 1940 ASSESSMENT: 1. Chest pain. 2. Coronary artery disease. 3. Peripheral vascular disease. 4. Diabetes. 5. Heart failure with reduced ejection fraction, which is chronic. 6. Chronic obstructive pulmonary disease. 7. Chronic kidney disease, stage 3. 8. Hypomagnesemia. PLAN: I will replace his magnesium. Continue him on his home medications which includes aspirin, beta-tiffanie, and Plavix. He has not been on ZOILA inhibitor because of chronic kidney issues. It should be noted that his family brought up that he does drink quite a bit of vodka per day, so we will watch him closely for signs and symptoms of alcohol withdrawal. Velasquez S Tanya, MD/ lucinda JOB #: [id number] CC: Santiago Benedict, Attending Physician Santiago Benedict, Family Physician
--- NOTE | 2017-04-16 06:50 | DS ---
ADMIT: 03/30/2017 RM/LOC: 405 [facility] MR#: [id number] 2620 [facility] [address] [place], [place] [phone] GISELA MORA [address] [place] [id number] General Discharge Summary SEX: M AGE: 77 : 1940 ADMISSION DATE: 03/30/2017 DISCHARGE DATE: 04/03/2017 FINAL DIAGNOSES: 1. Chronic hypoxic respiratory failure. 2. Interstitial fibrosis. 3. Acute on chronic systolic congestive heart failure. 4. [id number] myocardial infarction. 5. Chest pain. 6. Peripheral vascular disease. 7. Diabetes. 8. Coronary artery disease. REASON FOR ADMISSION: See dictated H and P. Briefly, this is a 77-year-old gentleman with extensive history came in with chest pain and was found to have an elevated troponin. HOSPITAL COURSE: He was admitted and placed on aspirin, beta-tiffanie, and Plavix, and his troponins were monitored. He was known to be a high alcohol consumer, this was monitored carefully. Home oxygen assessment revealed that he does need chronic oxygen. CT scan of his chest revealed pulmonary fibrosis- like changes, EF was unchanged. We had to do some IV diuresis, started him on his Dulera inhaler and ultimately the patient was set up to be discharged on 04/03/2017. DISCHARGE MEDICATIONS: See discharge medications for that list. Velasquez Martínez MD/ elenal JOB #: [id number] CC: Velasquez Martínez MD, Attending Physician Velasquez Martínez MD, Family Physician
[2017-05-09] MEDS ORDERED: LIPITOR80 MG PO (17:10)
[2017-05-09] MEDS ORDERED: ASA CHILDREN'S81 MG PO (17:10)
[2017-05-09] MEDS ORDERED: PLAVIX75 MG PO (17:11)
[2017-05-09] MEDS ORDERED: COREG DPS12.5 MG PO (17:11)
[2017-05-09] MEDS ORDERED: FLOMAX DPS0.4 MG PO (17:16)
[2017-05-09] MEDS ORDERED: SEROQUEL50 MG PO (17:16)
[2017-05-09] MEDS ORDERED: LASIX DPS40 MG PO (17:16)
[2017-05-09] MEDS ORDERED: PEPCID DPS20 MG PO (17:16)
[2017-05-09] MEDS ORDERED: FOLVITE-DPS1 MG PO (17:16)
[2017-05-09] MEDS ORDERED: DULERA 200/58.8 GM IH (17:17)
[2017-05-09] MEDS ORDERED: IMDUR DPS60 MG PO (17:17)
[2017-05-09] MEDS ORDERED: LEVEMIR100 UNIT/1 SQ (17:17)
[2017-05-09] MEDS ORDERED: SPIRIVA18 MCG IH (17:17)
[2017-05-09] MEDS ORDERED: VITAMIN B1100 MG PO (17:17)
[2017-05-09] MEDS ORDERED: ZOLOFT DPS50 MG PO (17:18)
[2017-05-09] MEDS ORDERED: NOVOLOG100 UNIT/2 SQ (17:18)
== END 2017-04-03 12:11 | disposition home health service (06) | DRG 280 ==
LOC: ER 06:31 → 4PCU 09:04
PROVIDERS: ADMIT Internal Medicine
DX: I21.4 Non-ST elevation (NSTEMI) myocardial infarction (principal); I50.23 Acute on chronic systolic (congestive) heart failure; J96.11 Chronic respiratory failure with hypoxia; L89.152 Pressure ulcer of sacral region, stage 2; I13.0 Hypertensive heart and chronic kidney disease with heart failure and stage 1 through stage 4 chronic kidney disease, or unspecified chronic kidney disease; E11.22 Type 2 diabetes mellitus with diabetic chronic kidney disease; E11.51 Type 2 diabetes mellitus with diabetic peripheral angiopathy without gangrene; I25.10 Atherosclerotic heart disease of native coronary artery without angina pectoris; J44.9 Chronic obstructive pulmonary disease, unspecified; F10.10 Alcohol abuse, uncomplicated; E83.42 Hypomagnesemia; J84.10 Pulmonary fibrosis, unspecified; N18.3 Chronic kidney disease, stage 3 (moderate); K21.9 Gastro-esophageal reflux disease without esophagitis; F32.9 Major depressive disorder, single episode, unspecified; I25.5 Ischemic cardiomyopathy; E78.5 Hyperlipidemia, unspecified; Z89.612 Acquired absence of left leg above knee; Z89.611 Acquired absence of right leg above knee; Z79.82 Long term (current) use of aspirin; Z79.4 Long term (current) use of insulin; Z87.891 Personal history of nicotine dependence; Z66 Do not resuscitate

== ENCOUNTER 2017-05-05 07:54 | Inpatient (IN) | payer MEDICARE ==
[~2017-05-05] VITALS: Ht 137.2 cm; Wt 84.5 kg
--- NOTE | ~2017-05-05 | DS ---
ADMIT: 05/05/2017 RM/LOC: 416 [facility] MR#: [id number] 2620 [facility] [address] [place] [phone] GISELA MORA [address] [place] [address] General Discharge Summary SEX: M AGE: 77 : 1940 ADMISSION DATE: 05/05/2017 DISCHARGE DATE: 05/08/2017 FINAL DIAGNOSES: 1. Chest pain. 2. Elevated troponin. 3. Recurrent angina. 4. Coronary artery disease. 5. Ischemic cardiomyopathy. 6. Pulmonary interstitial fibrosis. 7. Chronic systolic congestive heart failure. 8. Alcohol abuse. 9. Peripheral vascular disease. 10.Chronic kidney disease. 11.Atrial fibrillation. HOSPITAL COURSE: The patient because of his new problems. Apparently, heart cath has some lesions, so they were deciding on whether to get him set up for a PCI cath again at the time of discharge, thought may be he would resume his home medicines, be discharged home in the meantime. I likely reported that he needed possible treatment of his circumflex at some point in the future. DISCHARGE MEDICATIONS: See his discharge medication list for that. Velasquez Martínez MD/ lucinda JOB #: [id number] CC: Velasquez Martínez MD, Attending Physician Velasquez Martínez MD, Family Physician
--- NOTE | ~2017-05-05 | CATH ---
Cardiac Diagnostic Report Demographics Patient Name MORGAN Nelson Gender Male Date of 1940 Age 77 year(s) Patient Number [id number] Date of Study 05/07/2017 Visit Number [id number] Room Number 416 Corporate ID Ht 137.16 cm Wt 87.09 kg Accession Number [id number] BSA 1.7 m kg/m Referring Tanya Avalos Primary Physician Physician Performing King Yakov Black MD Secondary Physician Physician Diagnostic King Yakov Black MD Assisting Physician Physician Interventional Physician Cork Compounder Physician Findings and Conclusions Diagnostic Findings and Conclusion 1. Severe triple vessel CAD. Procedure Description The patient was brought to the diagnostic cardiac catheterization-laboratory in the fasting, non-sedated state. Informed consent was obtained in the written and verbal form after the risks and benefits were explained. The patient had no further questions and agreed to proceed. The planned puncture-incision site(s) were shaved and prepped with ChloraPrep and draped in the usual sterile manner. Conscious sedation, supplemental oxygen, and pain control medications were delivered by a registered nurse under physician guidance. Surface ECG rhythm, blood pressure measurement, and pulse oximetry were monitored throughout the procedure. Arterial access. The right femoral access site was infiltrated with lidocaine. The vessel was entered with the Seldinger technique. A 5F sheath was advanced into the vessel and used for catheter placement. Selective left coronary angiography. A catheter was advanced into the left coronary vessel ostium under Fluoroscopic guidance. Contrast was injected by hand. Images were obtained in multiple projections. Selective right coronary angiography. A catheter was advanced into the right coronary vessel ostium under fluoroscopic guidance. Contrast was injected by hand. Images were obtained in multiple projections. Selective CADE to LAD graft angiography. A catheter was advanced into the left internal mammary graft ostium under fluoroscopic guidance. Contrast was injected by hand. Images were obtained in multiple projections. Selective SVG to RCA angiography. A catheter was advanced into the graft proximal anastomosis under fluoroscopic guidance. Contrast was injected by hand. Images were obtained in multiple projections. Left heart catheterization. A catheter was advanced across the aortic valve to the left ventricle under fluoroscopic guidance. Resting hemodynamics were obtained. Arterial artery hemostasis. Hemostasis was achieved. The patient was transferred to a regular nursing floor via cart accompanied by a nurse. The patient left the laboratory in stable condition. Diagnostic Cath Status: Urgent Procedure Procedure Type Diagnostic procedure:Angiography:, Coronary Angios w/LHC & Grafts Indications: Chest pain with positive enzymes, Atrial fibrillation, Hyperlipidemia, Hypertension, Diabetes, History of CABG, CAD, COPD and CHF. The procedure was explained in detail to the patient. Risks, complications and alternative treatments were reviewed. Written consent was obtained. Medications Reviewed with Patient prior to Procedure. Complications: No Complication. Angiographic Findings Dominance: Right Cardiac Arteries and Lesion Findings LAD: Abnormal. Lesion on Prox LAD: 100% stenosis . LCx: Abnormal. Lesion on Prox CX: 99% stenosis . RCA: Abnormal. Lesion on R PDA: The lesion was diffuse. Comments:Diffuse luminal irregularites Lesion on Prox RCA: Ostial.100% stenosis . Ramus: Abnormal. Lesion on Ramus: Proximal subsection.50% stenosis . Cardiac Grafts - There is a Vein graft that originates at the Aorta Right and attaches to the Prox RCA (SVG to RCA-Patent ). - There is a CADE graft that originates at the CADE and attaches to the Prox LAD. Coronary Tree Procedure Data Procedure Date Date: 05/07/2017Start: 09:43 AM Entry Locations - Percutaneous access was performed through the Right Femoral artery (Primary location). A 6 Fr sheath was inserted. Hemostasis was successfully obtained using a pressurized flush bag which was connected to the sheath and it was sutured in place . Procedure Medications Order and Administration + + +---------+-------+ !Time !Medication !Dosage !Route ! + + +---------+-------+ !05/07/2017 09:44 AM !Versed !1 mg !I.V. ! + + +---------+-------+ !05/07/2017 09:44 AM !Fentanyl !25 mcg !I.V. ! + + +---------+-------+ !05/07/2017 09:44 AM !Sodium Chloride !10 ml !I.V. ! + + +---------+-------+ !05/07/2017 09:47 AM !Oxygen !6 l/min ! ! + + +---------+-------+ !05/07/2017 10:01 AM !Versed !0.5 mg !I.V. ! + + +---------+-------+ !05/07/2017 10:03 AM !Fentanyl !25 mcg !I.V. ! + + +---------+-------+ !05/07/2017 10:17 AM !Fentanyl !25 mcg !I.V. ! + + +---------+-------+ !05/07/2017 10:53 AM !Versed !0.5 mg !I.V. ! + + +---------+-------+ !05/07/2017 10:53 AM !Fentanyl !25 mcg !I.V. ! + + +---------+-------+ Devices Used - ACATH 5FR MULTIPACK CATHETERSwas used for:Coronary Angios. - A5F MPA1 CATHETER 100 CMwas used for:CADE.Unable to cannulate the vessel. - A5F IM CATHETER 100 CMwas used for:CADE.Unable to cannulate the vessel. - ACATH 5F PRC CATHETER 100CMwas used for:CADE. Contrast Material - Isovue 72820 ml - Isovue 08898 ml Fluoroscopy Time: Diagnostic: 28:00 minutes. Total: 28:00 minutes. Fluoroscopy Dose: Diagnostic: 1395 mGy. Total: 1395 mGy. Estimated Blood Loss: 9 ml. Medical History Allergies - Other:(PCN, MORPHINE, HYDRALAZINE, OXYCODONE). Risk Factors The patient risk factors include:prior CABG;treated hypercholesterolemia, treated hypertension, insulin-treated diabetes mellitus, chronic lung disease, last creatinine: 1.6 mg/dl, creatinine clearance: 46.12 ml/min, dyslipidemia and prior heart failure . Admission Data Admission Date: 05/05/2017 Admission Time: 10:40 AM Insurance Payors: Medicare. Clinical Evaluation Leading to Procedure Diagnosed on 05/07/2017 12:00 AM. - The patient's CAD presentation was assessed as: Non-STEMI. VA LV function assessed as:Abnormal. Ejection Fraction - 05/07/2017 - Method: LV gram. EF%: 20. Hemodynamics Condition: Rest O2 Consumption: Estimated: 198.21Heart Rate: 76 bpm Pressures (mmHg) +-----+ + !Site !Pressure ! +-----+ + !AO !135/43 (74) ! +-----+ + !LV !139/6 ,13 ! +-----+ + !AO !135/53 (87) ! +-----+ + !LV !133/4 ,11 ! +-----+ + !AO !147/48 (82) ! +-----+ + Valve Gradients and Areas + +---------+---------+---------+ +---------+ + !Valve !Peak !Mean !Area !Index !Flow !Source ! + +---------+---------+---------+ +---------+ + !Aortic !0 !0 ! ! ! ! ! + +---------+---------+---------+ +---------+ + !Aortic !0 !0 ! ! ! ! ! + +---------+---------+---------+ +---------+ + Shunts Oxygen Values O2 Capacity 167.28 O2 Consumption 198.21 Discharge Data Discharge Date: 05/08/2017 Hospital Status: Inpatient Signatures
--- NOTE | 2017-05-05 15:08 | ER ---
ADMIT: 05/05/2017 RM/LOC: 416 [facility] MR#: [id number] 2620 [facility] [address] [place] [phone] GISELA MORA [address] [place] [address] Emergency Room Report SEX: M AGE: 77 : 1940 DATE: 05/05/2017 ADDENDUM: A 77-year-old white male coming with chest pain. He is essentially a vascular path. CBC, chemistry were negative. However, his troponin did take a bump at 0.219. Tried nitroglycerin, it dumped his pressure. We had given him a little fluid, went back to some fentanyl, which seemed to help his pain at this time. I do not see anything acute on his EKG, however, he has had significant problems with his peripheral vascular disease as well. He even ended up with bilateral AKAs just above the knee on top of which he also has diabetes as well. He also was short of breath, but he also has pulmonary fibrosis which is not new for him. His lab is otherwise stable. I spoke with Dr. Schuler, he will need to admit him. CONDITION ON DISCHARGE: Serious but stable at this time. Bolivar Almanzar MD/ elenal JOB #: [id number] CC: Velasquez Martínez MD, Attending Physician Velasquez Martínez MD, Family Physician
[2017-05-09] MEDS ORDERED: LIPITOR80 MG PO (17:10)
[2017-05-09] MEDS ORDERED: ASA CHILDREN'S81 MG PO (17:10)
[2017-05-09] MEDS ORDERED: PLAVIX75 MG PO (17:11)
[2017-05-09] MEDS ORDERED: COREG DPS12.5 MG PO (17:11)
[2017-05-09] MEDS ORDERED: SEROQUEL50 MG PO (17:16)
[2017-05-09] MEDS ORDERED: FOLVITE-DPS1 MG PO (17:16)
[2017-05-09] MEDS ORDERED: PEPCID DPS20 MG PO (17:16)
[2017-05-09] MEDS ORDERED: LASIX DPS40 MG PO (17:16)
[2017-05-09] MEDS ORDERED: FLOMAX DPS0.4 MG PO (17:16)
[2017-05-09] MEDS ORDERED: LEVEMIR100 UNIT/1 SQ (17:17)
[2017-05-09] MEDS ORDERED: VITAMIN B1100 MG PO (17:17)
[2017-05-09] MEDS ORDERED: SPIRIVA18 MCG IH (17:17)
[2017-05-09] MEDS ORDERED: IMDUR DPS60 MG PO (17:17)
[2017-05-09] MEDS ORDERED: DULERA 200/58.8 GM IH (17:17)
[2017-05-09] MEDS ORDERED: ZOLOFT DPS50 MG PO (17:18)
[2017-05-09] MEDS ORDERED: NOVOLOG100 UNIT/2 SQ (17:18)
--- NOTE | 2017-05-13 07:55 | HP ---
ADMIT: 05/05/2017 RM/LOC: 416 [facility] MR#: [id number] 26[address] [facility] [address] [place], [place] [id number] GISELA MORA [address] [place] [address] History and Physical SEX: M AGE: 77 : 1940 DATE OF SERVICE: CHIEF COMPLAINT: Chest pain. HISTORY OF PRESENT ILLNESS: The patient does have known coronary artery disease, little chest pain last night. He is currently on Imdur. It was fleeting. It did last long. He woke up early this morning. Had chest pain again before he came to the ER. They gave him sublingual nitroglycerin in the ER. It resolved. Actually, he had developed hypotension. However, did respond to the fentanyl. His pain is now resolved. He has no GERD. He has no nausea, he has no vomiting. He has no abdominal pain. He is recently admitted at [facility] on March 30 to April 03 with chronic respiratory failure and a non-STEMI. He has been seen by multiple physicians in the past for similar admissions. He follows with Dr. [facility] with [facility]. He is seen for his chronic systolic heart failure as well as his coronary artery disease. He has not seen them since his most frequent discharge. Otherwise, he has been getting along quite well. He has been on his chronic 3 L of oxygen. He states he wears it most of the time, but he does take it at times when he often times when he moves from room to room. He otherwise has nothing else to report today. His chest pain is resolved, however, he was a bit concerned that it was what they were when he went to bed and did persist into the morning hours. Past medical history, family history, and social history is reviewed and is unchanged from my H and P on February 06 as well as March 30 H and P. MEDICATIONS: They are to be reconciled. He does have a list. He is unsure of all of that he takes. ALLERGIES: PENICILLIN, MERCURY, MORPHINE, AND HYDRALAZINE. PHYSICAL EXAMINATION: VITAL SIGNS: Blood pressure is 126/62, pulse 82, respiratory rate is 20, temperature is 96.5, 98% on 3 L. GENERAL: Alert and oriented x3. No acute distress. HEENT: Normocephalic and atraumatic. Extraocular movements intact. Pupils equally round and responsive to light. No nasal discharge. NECK: Supple. HEART: Irregular. LUNGS: Diminished bilaterally. No rales are noted. ABDOMEN: Soft. EXTREMITIES: He has bilateral above the knee amputations. LABORATORY DATA: Chest x-ray, no vascular congestion. Chemistry; sodium is 142, potassium is 4.2, chloride is 106, bicarb is 26, BUN is 33, creatinine is 1.5, glucose 141, calcium is 8.5, LDH is 246, Mag is 2, CK is 72, CK-MB is 3.4. Troponin is 0.219. White blood cells are 7.9, hemoglobin 13.4, platelets 142. ASSESSMENT AND PLAN: ADMIT: 05/05/2017 RM/LOC: 416 [facility] MR#: [id number] [address] [place] [id number] [facility] [address] [place] [address] History and Physical SEX: M AGE: 77 : 1940 1. Chest pain. 2. Coronary artery disease. 3. Chronic systolic heart failure. 4. Chronic respiratory failure. 5. Poorly controlled type 2 diabetes mellitus. 6. Hypertension. 7. Hyperlipidemia. 8. Depression. 9. Chronic obstructive pulmonary disease. 10.Hyperlipidemia. We will go ahead admit him to an inpatient telemetry status. We are going to trend out his cardiac enzymes. We will follow up with an EKG in the morning. We will maintain him on his chronic medication regimen for his diabetes, hypertension, hyperlipidemia, psychotropic medications, as well as COPD and pain control. We will go ahead and give him a cardiac diet. We will ask [facility] to see him if they have any further recommendations that they can add for the management of his chronic angina. I discussed this plan with the patient, expressed understanding, had no further questions. Bolivar Schuler MD/ lucinda JOB #: [id number] CC: Velasquez Martínez, Attending Physician Velasquez Martínez, Family Physician
--- NOTE | 2017-05-24 10:38 | CO ---
ADMIT: 05/05/2017 RM/LOC: 416 [facility] MR#: [id number] 2620 [facility] [address] [place] [id number] GISELA MORA Omar [address] [place] [address] Consultation SEX: M AGE: 77 : 1940 DATE OF CONSULTATION: 05/05/2017 ATTENDING PHYSICIAN: Velasquez Martínez CONSULTING PHYSICIAN: Shaggy Anderson MD REASON FOR CONSULT: Recurrent chest pain. HISTORY OF PRESENT ILLNESS: Walter is a 77-year-old, who is well known to us. He has had multiple hospitalizations over the past several months for heart failure, newly diagnosed pulmonary fibrosis, and recurrent angina. He has refused heart catheterizations dating back to 2014. His ejection fraction is 25%. He has bilateral above the knee amputation due to peripheral vascular disease. Walter was at home last night. He said that in the evening he started having chest discomfort. Obviously, he does not hardly even ambulate so he is at rest. He took a nitroglycerin. He woke up in the middle the night, feeling diaphoretic. He had some mild palpitations but that was not his main complaint. He described his pain as a heaviness that was moderate, radiating into his neck which is consistent with his previous angina. He took 3 nitroglycerin and continued to have pain this morning, so came to the emergency room. His initial troponin was just mildly elevated. His EKG did not show any new ischemic changes, but he does appear to be in atrial fibrillation which I think is new. PAST MEDICAL HISTORY: ALLERGIES: HE HAS INTOLERANCE TO OXYCODONE AND HAS PENICILLINS, MORPHINE, AND HYDRALAZINE LISTED ALLERGIES. MEDICATIONS: He is on: 1. Aspirin 81 daily. 2. Coreg 6.25 b.i.d. 3. Atorvastatin 40 at bedtime. 4. Plavix 75 daily. 5. Pepcid 20 b.i.d. 6. Folic acid 1 mg daily. 7. Lasix 40 daily. 8. Seroquel 50 at bedtime. 9. Zoloft 50 every day. 10.Flomax 0.4 at bedtime. 11.Vitamin B1. 12.Levemir insulin. 13.Spiriva inhaler. 14.Imdur 30 daily. 15.Dulera inhaler. 16.NovoLog sliding scale insulin. ADMIT: 05/05/2017 RM/LOC: 416 [facility] MR#: [id number] [address] [id number] GISELA MORA [address] [place] [address] Consultation SEX: M AGE: 77 : 1940 ILLNESSES: Include his coronary disease with previous bypass surgery at [facility], insulin-dependent diabetes, peripheral vascular disease status post bilateral above the knee amputation, recent diagnosis of pulmonary fibrosis, hyperlipidemia, gastroesophageal reflux disease, ischemic cardiomyopathy, chronic kidney disease, and history of depression. FAMILY HISTORY: Positive for history of heart disease. SOCIAL HISTORY: He has been retired for several years. He is still living at home with his who helps him with all his cares. He denies any recent tobacco use, but apparently he says he does drink vodka. He really would not offer how often he is drinking. REVIEW OF SYSTEMS: A full 12-point review of systems was reviewed and noncontributory other than that mentioned in the HPI. PHYSICAL EXAMINATION: VITAL SIGNS: His blood pressure is 126/62, his pulse is 82, respirations 20, he is afebrile. GENERAL: He is in good humor. He is smiling. He does not appear in any acute distress. He is mildly pale. EYES: Sclerae clear. No xanthelasmas. ENT: No JVD. I cannot appreciate any carotid bruits over his oxygen therapy. HEART: Irregularly irregular. Mildly tachycardic. There is a soft systolic murmur at the upper sternal borders, does not radiate to the carotids. CHEST: Few scattered rhonchi. Good respiratory effort and symmetric. No specific areas of crackles or wheezing. ABDOMEN: Obese. Soft and nontender. EXTREMITIES: He has bilateral above the knee amputation. There is good capillary refill. His hands are warm and dry. MUSCULOSKELETAL: Positive for his previous amputations. LABORATORY AND X-RAY DATA: Sodium 142, potassium 4.2, BUN 43, creatinine is 1.5. CK is 72, troponin is 0.219. I do not see a normal troponin in his previous history until going back as far as 2014. His last normal troponin was in 2008. His white count 7.9, hemoglobin 13.4, and platelet count 142,000. Chest x-ray shows mild cardiomegaly, but no significant vascular congestion. His EKG shows atrial fibrillation at a rate of 125. IMPRESSION: 1. Recurrent angina. 2. Atrial fibrillation, which I think this is a new diagnosis for him. 3. Known coronary artery disease with previous bypass surgery. 4. Ischemic cardiomyopathy, last EF 25%. 5. Chronic systolic heart failure. 6. Recent diagnosis of pulmonary interstitial fibrosis. 7. Alcohol abuse. 8. Status post bilateral above the knee amputation. 9. Chronic kidney disease, stable. ADMIT: 05/05/2017 RM/LOC: 416 [facility] MR#: [id number] [address] [place] [phone] GISELA MORA [address] [place] [address] Consultation SEX: M AGE: 77 : 1940 RECOMMENDATIONS: I reviewed his chart and it appears to me that this atrial fibrillation is new. I did review several EKGs from March and January and that appeared to be sinus. I did not see any sustained atrial arrhythmias. He is mildly tachycardic and this may be contributing to his already known chronic angina. His troponins have not been normal for years. I do not think this is acute coronary syndrome at this point, but rather is chronic angina, probably exacerbated by atrial fibrillation with rapid ventricular response. I think we would probably pursue rate control strategy at this point, and I will defer to the primary physician regarding chronic anticoagulation. We will try to optimize his beta-tiffanie, both for rate control and treatment of his chronic angina. Thank you for this consultation. Shaggy Anderson MD/ lucinda JOB #: [id number] CC: Velasquez Martínez, Attending Physician Velasquez Martínez, Family Physician
--- NOTE | 2017-05-31 13:15 | DS ---
ADMIT: 05/05/2017 RM/LOC: 416 [facility] MR#: [id number] 26[address] [facility] [address] [place] [id number] GISELA MORA [address] [place] [id number] General Discharge Summary SEX: M AGE: 77 : 1940 ADMISSION DATE: 05/05/2017 DISCHARGE DATE: 05/08/2017 FINAL DIAGNOSES: 1. Recurrent angina. 2. Coronary artery disease. 3. Chronic systolic congestive heart failure. 4. Chronic interstitial fibrosis. 5. Diabetes. 6. Peripheral vascular disease. 7. Questionable new atrial fibrillation. 8. Chronic alcoholism. PROCEDURE: Cardiac catheterization. REASON FOR ADMISSION: See dictated H and P. Briefly, this is a 77-year-old gentleman with known heart disease presented with chest pain and elevated troponins. HOSPITAL COURSE: He was admitted and set up for cardiac catheterization. It showed some severe disease with a question about whether they were going to be able to stent it or not, so he was taken to the cath conference. In the mean time, the patient was put on increased medications to try to control his symptoms. He is feeling well and is discharged to allow his kidneys a chance to recover from all the contrast dye and bring him back for a possible future heart cath and lesion stenting. See discharge medications for that list. Velasquez Martínez MD/ lucinda JOB #: [id number] CC: Velasquez Martínez MD, Attending Physician Velasquez Martínez MD, Family Physician
== END 2017-05-08 16:22 | disposition home health service (06) | DRG 287 ==
LOC: ER 07:54 → 4PCU 10:40
PROVIDERS: ADMIT Internal Medicine
PROC: B2131ZZ Fluoroscopy of Multiple Coronary Artery Bypass Grafts using Low Osmolar Contrast (ICD-10-PCS; principal; 2017-05-07)
PROC: B2111ZZ Fluoroscopy of Multiple Coronary Arteries using Low Osmolar Contrast (ICD-10-PCS; principal; 2017-05-07)
PROC: 4A023N7 Measurement of Cardiac Sampling and Pressure, Left Heart, Percutaneous Approach (ICD-10-PCS; principal; 2017-05-07)
DX: I25.110 Atherosclerotic heart disease of native coronary artery with unstable angina pectoris (principal); J96.11 Chronic respiratory failure with hypoxia; I50.22 Chronic systolic (congestive) heart failure; E11.22 Type 2 diabetes mellitus with diabetic chronic kidney disease; I13.0 Hypertensive heart and chronic kidney disease with heart failure and stage 1 through stage 4 chronic kidney disease, or unspecified chronic kidney disease; I48.91 Unspecified atrial fibrillation; E11.51 Type 2 diabetes mellitus with diabetic peripheral angiopathy without gangrene; J84.10 Pulmonary fibrosis, unspecified; N18.9 Chronic kidney disease, unspecified; I25.5 Ischemic cardiomyopathy; E11.65 Type 2 diabetes mellitus with hyperglycemia; J44.9 Chronic obstructive pulmonary disease, unspecified; F32.9 Major depressive disorder, single episode, unspecified; I25.10 Atherosclerotic heart disease of native coronary artery without angina pectoris; F10.10 Alcohol abuse, uncomplicated; E78.5 Hyperlipidemia, unspecified; I25.2 Old myocardial infarction; Z99.81 Dependence on supplemental oxygen; Z89.612 Acquired absence of left leg above knee; Z89.611 Acquired absence of right leg above knee; Z79.82 Long term (current) use of aspirin; Z79.4 Long term (current) use of insulin; Z95.1 Presence of aortocoronary bypass graft